=== PATIENT | female | born 1980 | race Hispanic/Latino ===

== ENCOUNTER 2019-12-17 16:37 | Outpatient (CLI) | payer BC ==
--- NOTE | 2019-12-17 17:01 | RAD ---
EXAM: CHEST TWO VIEWS 12/17/2019 4:58 PM HISTORY: Psoriasis COMPARISON: None. FINDINGS: Lungs: No acute airspace consolidation. Heart: Normal in size and contour. Pulmonary Vessels: Normal. Costophrenic Angles: Clear. Pneumothorax: None. Osseous Structures: Intact. Additional Findings: None. IMPRESSION: No significant acute intrathoracic disease.
== END 2019-12-17 16:38 | disposition home or self-care (01) ==
LOC: RAD 16:37
PROVIDERS: ATTEND Physician Assistant
DX: L40.0 Psoriasis vulgaris (principal)
CPT/HCPCS: 71046